=== PATIENT | female | born 1990 | race Caucasian/White ===

== ENCOUNTER 2017-08-29 02:06 | Emergency (ER) | payer SELFPAY ==
[2017-08-29 02:56] LABS: URINE HCG POC HCG NEGATIVE (Negative)
[2017-08-29] MEDS: LIDOCAINE 2% 20 ML VIAL. IJ (03:03)
[2017-08-29] MEDS: IBUPROFEN 600 MG TABLET. PO (03:04)
[2017-08-29] MEDS: DIPHTH,PERTUSS(ACELL),TET TOX 0.5 ML DISP.SYRIN. VAX IM (03:06)
== END 2017-08-29 04:08 | disposition home or self-care (01) ==
LOC: ER 02:06
DX: S81.812A Laceration without foreign body, left lower leg, initial encounter (principal); X58.XXXA Exposure to other specified factors, initial encounter; Y93.89 Activity, other specified; Y92.69 Other specified industrial and construction area as the place of occurrence of the external cause; Y99.8 Other external cause status
CPT/HCPCS: 12002; 73590; 81025; 90471; 90715; 99284-25